=== PATIENT | female | born 1980 | race Caucasian/White ===

== ENCOUNTER 2019-03-10 16:12 | Emergency (ER) | payer OTHER ==
[~2019-03-10] VITALS: Ht 160 cm; Wt 80.3 kg
[2019-03-10 16:17] VITALS: Ht 160 cm; Wt 80.3 kg
[2019-03-10] MEDS ORDERED: SOD CHLORIDE 0.9% 1,000 ML IV STA (16:50)
[2019-03-10] MEDS ORDERED: ACETAMINOPHEN 500 MG TAB PO STA (16:50)
[2019-03-10] MEDS ORDERED: FAMOTIDINE 20 MG INJ IV ONE (17:00)
[2019-03-10] MEDS ORDERED: DIPHENHYDRAMINE 50 MG INJ IV ONE (17:00)
[2019-03-10] MEDS ORDERED: METOCLOPRAMIDE 10 MG INJ IV ONE (17:00)
[2019-03-10] MEDS ORDERED: ONDA4TAB14 PO (18:45)
[2019-03-10] MEDS ORDERED: PYRI25TA4 PO (18:45)
[2019-03-10] MEDS ORDERED: ACET-141 PO (18:45)
[2019-03-10 19:32] VITALS: BP 124/79; PULSE 78; RESP 18
--- NOTE | 2019-03-10 21:02 | ERD ---
ER Documentation Chief Complaint Chief Complaint 10 weeks preg , c/o headache , nausea , denies any vag bleed HPI History of Present Illness: 38-year-old female who denies a past medical history coming in today with complaint of epigastric pain, headache, nausea. Patient is G7, P5, A0. Patient denies severe abdominal pain, vomiting, vaginal bleeding, pelvic pain. At home pharmacological/nonpharmacological treatment for symptoms: Denies Denies social concerns; Denies recent foreign travel ROS All systems reviewed and are negative except as per history of present illness. Medications Home Meds Active Scripts Acetaminophen* (Acetaminophen*) 500 MG Extra Strength Tablet, 1000 MG PO Q6H PRN for PAIN AND OR ELEVATED TEMP, #30 TAB Prov:SG PEPE NP 03/10/19 Pyridoxine Hcl* (Pyridoxine Hcl*) 25 Mg Tablet, 25 MG PO Q8 for NAUSEA PREVENTION for 30 Days, TAB Prov:SG PEPE NP 03/10/19 Ondansetron (Ondansetron Odt) 4 Mg Tab.rapdis, 4 MG PO Q6H PRN for NAUSEA AND/OR VOMITING, #10 TAB Prov:SG PEPE NP 03/10/19 Allergies Allergies: Coded Allergies: No Known Allergy (Unverified , 03/10/19) PMhx/Soc Medical and Surgical Hx: pt denies Medical Hx, pt denies Surgical Hx Hx Alcohol Use: No Hx Substance Use: No Hx Tobacco Use: No Smoking Status: Never smoker FmHx Family History: No diabetes Physical Exam Vitals Vital Signs Date Temp Pulse Resp B/P (MAP) Pulse Ox O2 O2 Flow FiO2 Time Delivery Rate 03/10/19 98.6 78 18 124/79 100 Room Air 19:32 (94) 03/10/19 98.1 86 18 129/79 100 16:17 (96) Physical Exam Const: No acute distress Head: Atraumatic Eyes: Normal Conjunctiva ENT: Normal External Ears, Nose and Mouth. Neck: Full range of motion. No meningismus. Resp: Clear to auscultation bilaterally Cardio: Regular rate and rhythm, no murmurs Abd: Soft, suprapubic tenderness, non distended. Normal bowel sounds Skin: No petechiae or rashes Back: No midline or flank tenderness Ext: No cyanosis, or edema Neur: Awake and alert Psych: Normal Mood and Affect Result Diagram: 03/10/19 1705 Results 24 hrs Laboratory Tests Test 03/10/19 17:05 White Blood Count 8.6 10^3/ul Red Blood Count 3.91 10^6/ul Hemoglobin 11.5 g/dl Hematocrit 34.4 % Mean Corpuscular Volume 88.0 fl Mean Corpuscular Hemoglobin 29.4 pg Mean Corpuscular Hemoglobin Concent 33.4 g/dl Red Cell Distribution Width 13.1 % Platelet Count 267 10^3/UL Mean Platelet Volume 10.0 fl Immature Granulocytes % 0.100 % Neutrophils % 48.2 % Lymphocytes % 38.2 % Monocytes % 6.6 % Eosinophils % 6.3 % Basophils % 0.6 % Nucleated Red Blood Cells % 0.0 /100WBC Immature Granulocytes # 0.010 10^3/ul Neutrophils # 4.2 10^3/ul Lymphocytes # 3.3 10^3/ul Monocytes # 0.6 10^3/ul Eosinophils # 0.5 10^3/ul Basophils # 0.1 10^3/ul Nucleated Red Blood Cells # 0.0 10^3/ul Urine Color STRAW Urine Clarity CLEAR Urine pH 6.0 Urine Specific Shock 1.006 Urine Ketones NEGATIVE mg/dL Urine Nitrite NEGATIVE mg/dL Urine Bilirubin NEGATIVE mg/dL Urine Urobilinogen NEGATIVE mg/dL Urine Leukocyte Esterase NEGATIVE Samuel/ul Urine Hemoglobin NEGATIVE mg/dL Urine Glucose NEGATIVE mg/dL Urine Total Protein NEGATIVE mg/dl Beta HCG, Quantitative 75403.0 mIU/ml Current Medications Medications Dose Sig/Olivia Start Time Status Last (Trade) Ordered Route PRN Stop Time Admin Dose Reason Admin Sodium 1,000 ml @ Q1H STAT 03/10/19 DC 03/10/19 Chloride 1,000 mls/hr IV 16:50 17:10 03/10/19 17:49 1,000 mg ONCE STAT 03/10/19 DC 03/10/19 Acetaminophen PO 16:50 17:11 (Tylenol 03/10/19 16:53 Tab) 5 mg ONCE ONCE 03/10/19 DC 03/10/19 Metoclopramid IV 17:00 17:11 e HCl 03/10/19 17:01 (Reglan) 12.5 mg ONCE ONCE 03/10/19 DC 03/10/19 Diphenhydrami IV 17:00 17:11 ne HCl 03/10/19 17:01 (Benadryl) Famotidine 20 mg ONCE ONCE 03/10/19 DC 03/10/19 (Pepcid Iv) IV 17:00 17:11 03/10/19 17:01 Procedures/MDM ED course includes a thorough examination and history. Medications: IV NS, Pepcid, acetaminophen, Zofran Imaging: OB pelvic ultrasound Labs: CBC, Rh, urinalysis, beta quantitative Low suspicion for life-threatening medical emergency. Otherwise healthy patient presenting with constellation of symptoms likely representing uncomplicated epigastric pain, headache, nausea as characterized by history, physical exam findings, abdominal findings, lab findings.CBC: no e/o of systemic infection or severe anemia. Beta quantitative 29.9K. Urinalysis negative for infection. Blood type O+, no RhoGam indicated. Ultrasound results showing: IMPRESSION: Single intrauterine with an estimated gestational age of 6 weeks 3 days. No heart activity appreciated. Short-term follow-up ultrasound with serial beta HCG recommended. Moderate to large subchorionic hemorrhage. RPTAT: [facility] Physician Jaylyn Date Time Electronically viewed and signed by Physician Jaylyn on 03/10/2019 14:32 Patient reassessment: Patient denies nausea. Patient denies epigastric pain. Patient denies headache. and family member at bedside. Ultrasound results and blood work reviewed. Instructions to return to emergency department in 3 to 4 days for repeat blood work and ultrasound. Patient hemodynamically stable. No respiratory distress, otherwise relatively well appearing and nontoxic. Disposition given. Patient educated on diagnoses, prescriptions, follow-up care, return precautions. Strict return precautions given for worsening condition; questions answered discharge. Verbalizes understanding of discharge instructions as well as plan of care and results. During time of disposition, patient voices concern because she reports that an IUD was present and she became . removed IUD during and explained that they could possibly be complications. Patient believes her last menstrual period was approximately January 10, but she is unsure. Disposition for discharge with followup in 3-4 days with PCP/clinic. Departure Diagnosis: Primary Impression: Epigastric abdominal pain affecting in first trimester Additional Impressions: Headache heartbeat not heard Nausea Subchorionic hemorrhage Condition: Stable Patient Instructions: Nausea, Abdominal Pain, Early Referrals: [facility] [place] [place] [address] [facility] [address] [place] [address] OFFICE FAX GAUTAM MILLER [address] [place] [address] [address] [address] [place] [address] [address] LIMA, [facility] [address] [facility], [address], [facility] [address] [address] [facility] [address] [place] [address] [facility] [address] [place] [address] [address] [facility] [address] - JERI SAMUEL [address], [facility] [address] [address] LAU, ROBERT [address] [facility]. [address], [facility] [address] [address] CHRISTY, [facility] [address] [place] [address] [facility] () Usted se ch hecho un examen mdico de control que le indica que no est en buddy condicin que requiera tratamiento urgente en el Departamento de Emergencia. Un estudio ms profundo y el tratamiento de gardiner condicin pueden esperar sin ningn riesgo hasta que usted sea atendida/o en el consultorio de gardiner mdico o buddy clnica. Es responsabilidad suya arreglar buddy anastacia para el seguimiento del william. MANEJO DE CONDICIONES NO URGENTES EN EL FUTURO 1) Si usted tiene un mdico de atencin primaria: Usted debera llamar a gardiner mdico de atencin primaria antes de venir al departamento de emergencia. Despus de las horas de consultorio, gardiner doctor o gardiner asociado/a est disponible por telfono. El mdico o enfermero de brissa en el servicio telefnico puede asesorarle por kimmy medio para atender el problema, o william contrario se puede programar buddy anastacia. 2) Si usted no tiene un mdico de atencin primaria: Llame al mdico o clnica de referencia que aparece abajo kim las horas de consultorio para hacer buddy anastacia para que le vean. CLINICAS: [place] [id number] [phone] [facility] [phone] [address] [facility] [phone] [address] [facility]. [facility] [phone] [address] [facility] [place] [phone] [address] [facility]. [phone] [address] [facility] () issa se ch hecho un examen mdico de control que le indica que no est en buddy condicin que requiera tratamiento urgente en el Departamento de Emergencia. Un estudio ms profundo y el tratamiento de gardiner condicin pueden esperar sin ningn riesgo hasta que usted sea atendida/o en el consultorio de gardiner mdico o buddy clnica. Es responsabilidad suya arreglar buddy anastacia para el seguimiento del william. MANEJO DE CONDICIONES NO URGENTES EN EL FUTURO 1) Si usted tiene un mdico de atencin primaria: Usted debera llamar a gardiner mdico de atencin primaria antes de venir al departamento de emergencia. Despus de las horas de consultorio, gardiner doctor o gardiner asociado/a est disponible por telfono. El mdico o enfermero de brissa en el servicio telefnico puede asesorarle por kimmy medio para atender el problema, o william contrario se puede programar buddy anastacia. 2) Si usted no tiene un mdico de atencin primaria: Llame al mdico o condado institucions de referencia que aparece abajo kim las horas de consultorio para hacer buddy anastacia para que le vean. SI USTED NO PUEDE PAGAR PARA HOMERO UN MEDICO puede ir a: [facility] [address] [place] [address] [facility] [address] [place] [address] [facility] [address] [place] [address] [facility]A [facility] [address] [place] [place], [place] [id number] Additional Instructions: Muchas francine por permitirnos participar en gardiner cuidado. Gardiner brooklyn y seguridad es nuestra principal prioridad en [facility]. Es importante leer todas las instrucciones de ashley y la educacin que se proporcionan en gardiner paquete de ashley. vuelva al departamento de emergencias en aproximadamente 3 edwards para reevaluar las pruebas de carito y la ecografa para evaluar si se puede detectar un latido. Llame a gardiner mdico de atencin primaria MAANA para buddy anastacia kim los prximos 2 a 4 edwards y lleve toda la informacin y los medicamentos recetados. Llene las recetas y siga exactamente las instrucciones de la etiqueta. -Zofran es un medicamento para las nuseas / vmitos; tome reyna medicamento segn sea necesario para las nuseas / vmitos. -Mi piridoxina es la vitamina B6. Newtonia reyna medicamento cada 8 horas todos los edwards para prevenir las nuseas y los vmitos. -Acetaminofeno jeanette medicamento para el dolor. Reyna medicamento cada 6-8 horas segn lo prescrito para el dolor o dolor de perla. Si los sntomas empeoran y gardiner proveedor no est disponible, regrese inmediatamente al Departamento de Emergencias. ---- Thank you very much for allowing us to participate in your care. Your health and safety is our top priority at [facility]. It is important to read all discharge instructions and education provided in your discharge packet. * return to emergency department in approximately 3 days for reevaluation of blood testing as well as ultrasound to evaluate if a heartbeat is detectable.* Call your primary care doctor TOMORROW for an appointment during the next 2-4 days and bring all the information and medications prescribed. Have prescriptions filled and follow precisely the directions on the label. -Zofran is a medication for nausea/vomitting; take this medication as needed for nausea/vomiting. -My pyridoxine is vitamin B6. Take this medication every 8 hours every day to prevent nausea and vomiting. -Acetaminophen as a pain medication. This medication every 6-8 hours as prescribed for pain or headache. If the symptoms get worse and your provider is unavailable, return to the Emergency Department immediately. SG PEPE NP Mar 10, 2019 21:02
== END 2019-03-10 19:38 | disposition home or self-care (01) ==
LOC: FTE 16:12
DX: O26.891 Other specified pregnancy related conditions, first trimester (principal); O20.9 Hemorrhage in early pregnancy, unspecified; R10.13 Epigastric pain; R51 Headache; O21.9 Vomiting of pregnancy, unspecified; Z3A.10 10 weeks gestation of pregnancy
CPT/HCPCS: 36415; 76801; 81003; 84702; 85025; 86900; 86901; 96374; 96375; J1200; J2765; J7030; Z7502; Z7610

== ENCOUNTER 2019-03-14 16:49 | Emergency (ER) | payer OTHER ==
[~2019-03-14] VITALS: Ht 165.1 cm; Wt 77.2 kg
[~2019-03-14 16:49] MED LIST: ACET-141 PO; ONDA4TAB14 PO; PYRI25TA4 PO
[2019-03-14 17:18] VITALS: Ht 165.1 cm; Wt 77.2 kg
--- NOTE | 2019-03-14 20:25 | ERD ---
ER Documentation Chief Complaint Chief Complaint repeat lab work 2 days HPI 38-year-old female who denies a past medical history coming in today to repeat quantitative hCG and ultrasound. patient is G7, P5, A0. Patient denies severe abdominal pain, vomiting, vaginal bleeding, pelvic pain. ROS All systems reviewed and are negative except as per history of present illness. Medications Home Meds Active Scripts Acetaminophen* (Tylenol*) 325 Mg Tablet, 2 TAB PO Q6 PRN for PAIN AND OR ELEVATED TEMP, #20 TAB Prov:HU PIRES MD 03/14/19 Acetaminophen* (Acetaminophen*) 500 MG Extra Strength Tablet, 1000 MG PO Q6H PRN for PAIN AND OR ELEVATED TEMP, #30 TAB Prov:SG PEPE NP 03/10/19 Pyridoxine Hcl* (Pyridoxine Hcl*) 25 Mg Tablet, 25 MG PO Q8 for NAUSEA PREVENTION for 30 Days, TAB Prov:SG PEPE NP 03/10/19 Ondansetron (Ondansetron Odt) 4 Mg Tab.rapdis, 4 MG PO Q6H PRN for NAUSEA AND/OR VOMITING, #10 TAB Prov:SG PEPE NP 03/10/19 Allergies Allergies: Coded Allergies: No Known Allergy (Unverified , 03/10/19) PMhx/Soc History of Surgery: No Anesthesia Reaction: No Hx Neurological Disorder: No Hx Respiratory Disorders: No Hx Cardiac Disorders: No Hx Psychiatric Problems: No Hx Miscellaneous Medical Probl: No Hx Alcohol Use: No Hx Substance Use: No Hx Tobacco Use: No Smoking Status: Never smoker FmHx Family History: No diabetes, No coronary disease Physical Exam Vitals Vital Signs Date Temp Pulse Resp B/P (MAP) Pulse Ox O2 O2 Flow FiO2 Time Delivery Rate 03/14/19 98.4 76 18 134/84 98 22:32 (101) 03/14/19 97.8 70 18 133/73 100 17:18 (93) Physical Exam Const: No acute distress Head: Atraumatic Eyes: Normal Conjunctiva ENT: Normal External Ears, Nose and Mouth. Neck: Full range of motion. No meningismus. Resp: Clear to auscultation bilaterally Cardio: Regular rate and rhythm, no murmurs Abd: Soft, non tender, non distended. Normal bowel sounds Skin: No petechiae or rashes Back: No midline or flank tenderness Ext: No cyanosis, or edema Neur: Awake and alert Psych: Normal Mood and Affect Results 24 hrs Laboratory Tests Test 03/14/19 20:31 Urine Color STRAW Urine Clarity CLEAR Urine pH 6.0 Urine Specific [place] 1.005 Urine Ketones NEGATIVE mg/dL Urine Nitrite NEGATIVE mg/dL Urine Bilirubin NEGATIVE mg/dL Urine Urobilinogen NEGATIVE mg/dL Urine Leukocyte Esterase NEGATIVE Samuel/ul Urine Hemoglobin NEGATIVE mg/dL Urine Glucose NEGATIVE mg/dL Urine Total Protein NEGATIVE mg/dl Beta HCG, Quantitative 00062.0 mIU/ml Procedures/MDM Vital signs stable, Physical exam unremarkable. Differential diagnosis include but not limited to: UTI, threatening , incomplete versus complete , ectopic , physiologic implantation bleeding, molar . Physical examination and clinical presentation most likely consistent with missed . During the ED course the patient remained hemodynamically stable and asymptomatic. Results and clinical impression discussed with patient who agrees with management. The patient is stable to be treated outpatient and will be discharged home with close monitoring and follow-up in 2 days with her primary physician. Bed rest and pelvic rest recommended until further medical evaluation. The patient was instructed regarding the outcomes and the potential complications like severe bleeding. If the patient presents severe bleeding or pain, she was instructed to return to the hospital immediately. Disclaimer: Inadvertent spelling and grammatical errors are likely due to EHR/dictation software use and do not reflect on the overall quality of patient care. Also, please note that the electronic time recorded on this note does not necessarily reflect the actual time of the patient encounter. Departure Diagnosis: Primary Impression: Missed Condition: Stable Additional Instructions: Muchas francine por [facility] para lawson servicio. Esperamos que en lawson visita a la emily de emergencia lawson problema medico haya sido solucionado y que se sienta mucho mejor. Para estar seguros que lawson mejoria sigue en proceso, le pedimos el favor de hacer buddy anastacia de seguimiento medico con lawson doctor primario en los proximos 2-4 kearney. Lleve con usted estos documentos y las medicinas recetadas. Si mark sintomas empeoran, NO SE ESPERE, por favor regrese a emily de emergencia INMEDIATAMENTE. En william que usted no tenga un mdico de atencin primaria: Llame al mdico o clnica comunitaria de referencia que aparece abajo kim las horas de consultorio para hacer buddy anastacia para que le vean. CLINICAS: [facility] [phone] [address] [facility] [phone] [address] [facility] [phone] [address] [facility]. [place] [phone] [address] [facility]. [place] [phone] [address] [facility]. [phone] HU COLEY MD Mar 14, 2019 20:25
[2019-03-14] MEDS ORDERED: ACET325T33 PO (21:44)
[2019-03-14 22:32] VITALS: BP 134/84; PULSE 76; RESP 18
== END 2019-03-14 22:33 | disposition home or self-care (01) ==
LOC: FTE 16:49
DX: O02.1 Missed abortion (principal)
CPT/HCPCS: 76801; 76817; 81003; 84702; Z7502